=== PATIENT | male | born 1940 | race Caucasian/White ===

== ENCOUNTER 2016-09-15 09:39 | Day surgery (SDC) | payer MEDICARE, OTHER ==
[2016-09-15] MEDS ORDERED: Lactated Ringers 1,000 ML IV SCH (10:15)
[2016-09-15] MEDS ORDERED: Propofol 200 MG/20 ML SDV ONE (10:39)
[2016-09-15] MEDS ORDERED: fentaNYL 100 MCG/2 ML SDV ONE (10:40)
[2016-09-15 13:27] VITALS: BP 157/65
--- NOTE | 2016-09-16 08:23 | OR ---
DATE OF PROCEDURE: 09/15/2016 PREOPERATIVE DIAGNOSIS: History of adenomatous colon polyps. POSTOPERATIVE DIAGNOSES: Unremarkable colonoscopy, history of adenomatous colon polyps. PROCEDURE: Colonoscopy to the cecum. ANESTHESIA: IV anesthesia with monitored anesthesia care. INDICATION: This 75-year-old white male is referred for a colonoscopy because of a history of adenomatous colon polyps. He says his last colonoscopic exam was done three years ago. I counseled him for the procedure including risks and alternatives and he gave his informed consent to proceed. DESCRIPTION OF PROCEDURE: The patient was placed in the left lateral decubitus position. IV anesthesia was administered by the Anesthesia Service. Time-out was held. A rectal exam was performed, which was unremarkable. The flexible video Olympus colonoscope was introduced through his anus, up his rectum, and out his colon all way to the cecum. Once the cecum was reached, the scope was slowly withdrawn examining the mucosa throughout. No mucosal abnormalities were noted. The scope was retroflexed in the rectum with the distal rectum appearing unremarkable. The scope was straightened and removed. He tolerated the procedure well. We will plan a repeat colonoscopy in 5 years. Tyrel Martínez MD /[id number] SLICK
== END 2016-09-15 13:40 | disposition home or self-care (01) ==
LOC: JP.SDS 09:39
PROVIDERS: ATTEND Surgery
DX: Z12.11 Encounter for screening for malignant neoplasm of colon (principal); I10 Essential (primary) hypertension; Z88.0 Allergy status to penicillin
CPT/HCPCS: 45378; J2704; J3010; J7120

== ENCOUNTER 2018-12-02 21:33 | Emergency (ER) | payer MEDICARE, OTHER ==
--- NOTE | 2018-12-02 21:56 | EDM.PDOC ---
ED HPI GENERAL MEDICAL PROBLEM - General Chief Complaint: Laceration Stated Complaint: FELL CUT EAR Time Seen by Provider: 12/02/18 22:00 Source of Information: Reports: Patient History Limitations: Reports: No Limitations - History of Present Illness INITIAL COMMENTS - FREE TEXT/NARRATIVE: pt got up out of the bed and caught hiomself on the bed sheet and trimmed. He hit his rt ear against the end table and has a 1 inch laceration on the rt ear lobe. This did not go through the cartilage. Onset: Today, Sudden Duration: Hour(s): Location: Reports: Face, Other ( Pt has a laceration of the rt ear lobe. ) Associated Symptoms: Reports: No Other Symptoms Right Ear Pain Score (Numeric/FACES): 3 - Related Data Allergies Allergy/AdvReac Type Severity Reaction Status Date / Time Penicillins Allergy Severe Hives Verified 12/02/18 22:14 Home Meds: Home Meds Metoprolol Succinate [Toprol XL] 50 mg PO DAILY 04/19/13 [History] Sildenafil [Viagra] 100 mg PO DAILY PRN 05/16/13 [History] Past Medical History HEENT History: Reports: Impaired Vision Cardiovascular History: Reports: Hypertension Gastrointestinal History: Reports: Colon Polyp Musculoskeletal History: Reports: Fracture Dermatologic History: Reports: Cellulitis - Infectious Disease History Infectious Disease History: Reports: Chicken Pox, Measles, Mumps - Past Surgical History GI Surgical History: Reports: Appendectomy, Hernia, Abdominal Social & Family History - Caffeine Use Caffeine Use: Reports: Coffee ED ROS GENERAL - Review of Systems Review Of Systems: See Below Constitutional: Reports: No Symptoms HEENT: Reports: Other ( rt ear lobe is lacerated. ) Respiratory: Reports: No Symptoms Cardiovascular: Reports: No Symptoms Endocrine: Reports: No Symptoms GI/Abdominal: Reports: No Symptoms : Reports: No Symptoms Musculoskeletal: Reports: No Symptoms Skin: Reports: No Symptoms Neurological: Reports: No Symptoms Psychiatric: Reports: No Symptoms ED EXAM, SKIN/RASH Exam: See Below Text/Narrative:: pt went to get up and tripped on the bedsheet. He hit the bedside table. He had a 1.5 inch laceration on the front of the ear lobe and it wrapped to the back of the ear. This did not involve the cartilage of the ear. The wound was closed with 6-0 prolene. The wound was treated with bacatraCIN AND A DRESSING WAS APPLIED. Exam Limited By: No Limitations General Appearance: Alert, Anxious, Mild Distress Ears: Other (PT HAD A 1.5 INCH LACERATION WHICH WRAPPED TO THE BACK OF THE EAR . tHIS DOES NOT INVOLVE THE CARTILAGE. ) Nose: Normal Inspection Throat/Mouth: Normal Inspection Head: Atraumatic Neck: Normal Inspection Respiratory/Chest: No Respiratory Distress Course - Vital Signs Last Recorded V/S: Last Vital Signs Temp 36.1 C 12/02/18 22:01 Pulse 81 12/02/18 22:01 Resp 16 12/02/18 22:01 BP 174/84 H 12/02/18 22:01 Pulse Ox 96 12/02/18 22:01 - Orders/Labs/Meds Orders: Active Orders 24 hr Category Date Time Status Vaccines to be Administered [RC] PER UNIT ROUTINE Care 12/02/18 22:31 Active Meds: Medications Discontinued Medications Generic Name Dose Route Start Last Admin Trade Name Freq PRN Reason Stop Dose Admin Bacitracin 1 dose 12/02/18 22:00 12/02/18 22:09 Bacitracin Oint 1 Gm TOP 12/02/18 22:01 1 dose ONETIME ONE Administration Diphtheria/Tetanus/Acell Pertussis 0.5 ml 12/02/18 22:30 12/02/18 22:37 Adacel IM 12/02/18 22:31 0.5 ml .ONCE ONE Administration Lidocaine HCl 5 ml 12/02/18 21:59 12/02/18 22:09 Xylocaine-Mpf 1% INJECT 12/02/18 22:00 5 ml ONETIME ONE Administration - Re-Assessments/Exams Free Text/Narrative Re-Assessment/Exam: 12/02/18 22:34 The area was cleansed well and infiltrated with lidocaine. The wound was 1.5 inches because the laceration wrapped to the back of the ear. The wound was closed with 6-0 prolene . It was cleaned well bactracin was applied. The wound can be left open to air. Pt was given a tetanus booster. He has no record of a recent tdap in the state registry. . 12/02/18 22:38 Departure - Departure Time of Disposition: 22:31 Disposition: Home, Self-Care 01 Condition: Fair Clinical Impression: Laceration of right ear - Discharge Information Instructions: Laceration Care, Adult, VIS, Tetanus, Diphtheria, and Pertussis ( Tdap) - [facility] (08/06/2014) Referrals: Hugh Torres MD [Primary Care Provider] - Forms: ED Department Discharge Care Plan Goals: keep dry, do not use further ouintments, rtc if redness or drainage, suture removal with Dr Torres in 1 week. - My Orders Last 24 Hours: My Active Orders 12/02/18 22:31 Vaccines to be Administered [RC] PER UNIT ROUTINE - Assessment/Plan Last 24 Hours: My Active Orders 12/02/18 22:31 Vaccines to be Administered [RC] PER UNIT ROUTINE
[2018-12-02] MEDS ORDERED: Bacitracin Oint 1 GM U/D Packet TOP ONE (22:00)
[2018-12-02 22:02] VITALS: BP 174/84
[2018-12-02] MEDS ORDERED: Diphtheria,Pertussis(Acell),Tetanus Vaccine 0.5 ML SDV IM ONE (22:30)
== END 2018-12-02 22:47 | disposition home or self-care (01) ==
LOC: JP.ED 21:33
DX: S01.311A Laceration without foreign body of right ear, initial encounter (principal); Z23 Encounter for immunization; I10 Essential (primary) hypertension; Z88.0 Allergy status to penicillin; Z79.899 Other long term (current) drug therapy; W22.03XA Walked into furniture, initial encounter
CPT/HCPCS: 12013; 90471; 90715; 99282; J2001

== ENCOUNTER 2020-04-11 10:11 | Emergency (ER) | payer OTHER, MEDICARE ==
[2020-04-11 10:38] VITALS: BP 185/87; PULSE 65
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
== END 2020-04-11 11:39 | disposition home or self-care (01) ==
LOC: JP.ED 10:11
DX: S29.012A Strain of muscle and tendon of back wall of thorax, initial encounter (principal); I10 Essential (primary) hypertension; Z88.0 Allergy status to penicillin; Z79.899 Other long term (current) drug therapy; V47.9XXA Unspecified car occupant injured in collision with fixed or stationary object in traffic accident, initial encounter
CPT/HCPCS: 99283

== ENCOUNTER 2020-04-13 06:15 | Emergency (ER) | payer OTHER, MEDICARE ==
[2020-04-13 06:32] VITALS: BP 173/87; PULSE 60
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
== END 2020-04-13 08:51 | disposition home or self-care (01) ==
LOC: JP.ED 06:15
DX: S22.42XA Multiple fractures of ribs, left side, initial encounter for closed fracture (principal); I10 Essential (primary) hypertension; Z88.0 Allergy status to penicillin; Z79.899 Other long term (current) drug therapy; V89.2XXA Person injured in unspecified motor-vehicle accident, traffic, initial encounter
CPT/HCPCS: 71046; 71046-26; 71250; 99284-25

== ENCOUNTER 2023-04-02 12:20 | Emergency (ER) | payer MEDICARE, OTHER ==
[2023-04-02 12:33] VITALS: BP 191/89; PULSE 66
== END 2023-04-02 14:20 | disposition home or self-care (01) ==
LOC: JP.ED 12:20
DX: S00.83XA Contusion of other part of head, initial encounter (principal); I10 Essential (primary) hypertension; Z86.16 Personal history of COVID-19; Z88.0 Allergy status to penicillin; Z79.899 Other long term (current) drug therapy; W01.198A Fall on same level from slipping, tripping and stumbling with subsequent striking against other object, initial encounter
CPT/HCPCS: 99283

== ENCOUNTER 2023-12-11 07:21 | Inpatient (IN) | payer MEDICARE ==
[2023-12-11 08:33] LABS: BASOPHILS PERCENT AUTO 0.1 % (0.1-1.3); HEMATOCRIT 32.4 % (38.4-49.7); HEMOGLOBIN 11.6 g/dL (12.9-16.9); IMMATURE GRAN ABSOLUTE AUTO 0.03 K/uL (0.00-0.23); IMMATURE GRAN PERCENT AUTO 0.4 % (0.0-0.7); LYMPHOCYTES ABSOLUTE AUTO 0.47 K/uL (0.8-3.3); LYMPHOCYTES PERCENT AUTO 5.9 % (11.4-47.7); MEAN CORPUSCULAR HEMOGLOBIN 33.4 pg (31.6-35.5); MEAN CORPUSCULAR HGB CONC 35.8 g/dL (31.6-35.5); MEAN CORPUSCULAR VOLUME 93.4 fL (81.4-99.0); MONOCYTES ABSOLUTE AUTO 0.69 K/uL (0.20-0.90); MONOCYTES PERCENT AUTO 8.7 % (3.3-12.6); NEUTROPHILS PERCENT AUTO 84.9 % (40.0-78.1); PLATELET COUNT,PLT 126 K/uL (130-375); RED BLOOD CELL COUNT 3.47 M/uL (4.14-5.76); WHITE BLOOD CELL COUNT,WBC 7.9 K/uL (3.2-11.0)
[2023-12-11 08:35] LABS: BASOPHILS ABSOLUTE AUTO 0.01 K/uL (0.00-0.10)
[2023-12-11 08:52] LABS: INR 1.1; PROTHROMBIN TIME 11.4 sec (9.2-10.6); PTT,PARTIAL THROMBOPLSTIN TIME 32.5 sec (21.8-27.3)
[2023-12-11 08:59] LABS: A/G RATIO 0.7 (1.2-2.2); ALANINE AMINOTRANSFERASE,ALT 46 U/L (12-78); ALBUMIN 2.7 g/dL (3.4-5.0); ALKALINE PHOSPHATASE 82 U/L (46-116); ASPARTATE AMNIOTRANSFERASE,AST 40 U/L (15-37); BILIRUBIN TOTAL 0.9 mg/dL (0.2-1.0); BLOOD UREA NITROGEN,BUN 27 mg/dL (7-18); CALCIUM 8.5 mg/dL (8.5-10.1); CARBON DIOXIDE,CO2 25 mmol/L (21-32); CHLORIDE,CL 93 mmol/L (100-108); CREATINE KINASE,CK 100 U/L (39-308); CREATININE 1.7 mg/dL (0.8-1.3); EST CRCL DRUG DOSING (CG) 35.07 mL/min; ESTIMATED GFR 40 mL/min (>60); GLUCOSE RANDOM 145 mg/dL (74-106); MAGNESIUM 2.1 mg/dL (1.8-2.4); PHOSPHORUS 2.8 mg/dL (2.5-4.9); POTASSIUM,K 4.8 mmol/L (3.6-5.2); PROTEIN TOTAL,TP 6.6 g/dL (6.4-8.2); SODIUM,NA 126 mmol/L (140-148); TROPONIN I HIGH SENSITIVITY 15.6 pg/mL (<=60.3)
[2023-12-11 09:00] LABS: ANION GAP 12.8 mmol/L (5.0-14.0)
[2023-12-11] MEDS ORDERED: Sodium Chloride 0.9% 500 ML IV SCH (12:30)
[2023-12-11] MEDS ORDERED: Magnesium Hydroxide 400 MG/5 ML Susp 30 ML Cup PO PRN (12:55)
[2023-12-11] MEDS ORDERED: Sodium Chloride 0.9% 10 ML Syringe FLUSH PRN (12:55)
[2023-12-11] MEDS ORDERED: Sennosides/Docusate Sodium 50-8.6 MG Tab PO PRN (12:55)
[2023-12-11] MEDS ORDERED: Ondansetron 4 MG/2 ML SDV IV PRN (12:55)
[2023-12-11] MEDS ORDERED: Ondansetron 4 MG Tab.DIS PO PRN (12:55)
[2023-12-11] MEDS: Sodium Chloride 0.9% 1,000 ML IV SCH (13:31)
[2023-12-11 14:32] LABS: APPEARANCE,URINE SLIGHTLY CLOUDY (CLEAR); BILIRUBIN,URINE NEGATIVE (NEGATIVE); COLOR,URINE YELLOW (YELLOW); GLUCOSE,URINE NEGATIVE (NEGATIVE); KETONES,URINE NEGATIVE (NEGATIVE); LEUKOCYTE ESTERASE,URINE NEGATIVE (NEGATIVE); NITRITE,URINE NEGATIVE (NEGATIVE); OCCULT BLOOD,URINE SMALL (NEGATIVE); PROTEIN,URINE >=300 mg/dL (NEGATIVE)
[2023-12-11 14:39] LABS: AMORPHOUS SEDIMENT,URINE FEW; BACTERIA,URINE FEW; EPITHELIAL CELLS,URINE NOT SEEN; MUCUS,URINE NOT SEEN; RBC,URINE 0-5 (0-5); WBC,URINE 0-5 (0-5)
[2023-12-11] MEDS: Acetaminophen 325 MG Tab PO PRN (20:05)
[2023-12-11] MEDS: Enoxaparin 40 MG/0.4 ML Syringe SUBCUT SCH (22:35)
[2023-12-12 05:32] LABS: CALCIUM 8.2 mg/dL (8.5-10.1); CREATININE 1.4 mg/dL (0.8-1.3); EST CRCL DRUG DOSING (CG) 42.58 mL/min; POTASSIUM,K 4.4 mmol/L (3.6-5.2)
[2023-12-12 05:39] LABS: ANION GAP 12.4 mmol/L (5.0-14.0)
[2023-12-12] MEDS: Metoprolol Succinate 50 MG Tab.ER PO SCH (09:21)
[2023-12-13 05:32] LABS: CALCIUM 8.4 mg/dL (8.5-10.1); CREATININE 1.4 mg/dL (0.8-1.3); EST CRCL DRUG DOSING (CG) 42.58 mL/min; POTASSIUM,K 4.3 mmol/L (3.6-5.2); TSH ULTRASENSITIVE 1.399 uIU/mL (0.358-3.740)
[2023-12-13 05:44] LABS: ANION GAP 14.3 mmol/L (5.0-14.0)
[2023-12-13 06:11] VITALS: BP 104/61; PULSE 62
[2023-12-13] MEDS: Metoprolol Succinate 50 MG Tab.ER PO SCH (08:25)
[2023-12-13] MEDS: Metoprolol Succinate 25 MG Tab.ER PO SCH (10:31)
== END 2023-12-13 12:09 | disposition home or self-care (01) | DRG 683 ==
LOC: JP.ED 07:21 → UNDOADMOB 12:52 → JP.ICU 12:52 → OBSVTOIN 12-12 13:37
PROVIDERS: ADMIT Internal Medicine; ATTEND Hospitalist
DX: N17.9 Acute kidney failure, unspecified (principal); E87.1 Hypo-osmolality and hyponatremia; I48.92 Unspecified atrial flutter; E86.0 Dehydration; E66.9 Obesity, unspecified; I35.0 Nonrheumatic aortic (valve) stenosis; I11.0 Hypertensive heart disease with heart failure; I50.9 Heart failure, unspecified; I95.9 Hypotension, unspecified; F03.90 Unspecified dementia, unspecified severity, without behavioral disturbance, psychotic disturbance, mood disturbance, and anxiety; Z88.0 Allergy status to penicillin; Z88.2 Allergy status to sulfonamides; Z90.89 Acquired absence of other organs; Z68.30 Body mass index [BMI] 30.0-30.9, adult; Z86.010 Personal history of colon polyps; Z87.891 Personal history of nicotine dependence; Z79.899 Other long term (current) drug therapy
CPT/HCPCS: 36415; 70450; 71046; 71046-26; 80048; 80053; 81001; 82550; 82947; 83605; 83735; 83880; 84100; 84443; 84484; 85025; 85610; 85730; 93005; 93010; 96360; 96361; 96372; 97116-GP; 97161-GP; 97530-GP; 99222; 99232; 99238; 99285; A9270-GY; G0378; J1650; J7030

== ENCOUNTER 2024-01-30 06:16 | Day surgery (SDC) | payer MEDICARE ==
[2024-01-30] MEDS ORDERED: fentaNYL 50 MCG/ML SDV ONE (06:48)
[2024-01-30] MEDS ORDERED: Propofol 200 MG/20 ML SDV ONE ×2 (06:48→07:30)
[2024-01-30] MEDS: Lactated Ringers 1,000 ML IV SCH (06:55)
[2024-01-30 09:19] VITALS: BP 133/74; PULSE 61
== END 2024-01-30 09:45 | disposition home or self-care (01) ==
LOC: JP.SDS 06:16
PROVIDERS: ATTEND Family Medicine
DX: D12.3 Benign neoplasm of transverse colon (principal); K63.5 Polyp of colon; K29.50 Unspecified chronic gastritis without bleeding; K29.80 Duodenitis without bleeding; D50.9 Iron deficiency anemia, unspecified; I10 Essential (primary) hypertension; E66.9 Obesity, unspecified; Z88.0 Allergy status to penicillin; Z88.2 Allergy status to sulfonamides
CPT/HCPCS: 00813; 43239; 45380; 88305; 88342; J2704; J3010; J7120

== ENCOUNTER 2024-04-05 06:19 | Day surgery (SDC) | payer MEDICARE ==
[2024-04-05] MEDS: Sodium Chloride 0.9% 10 ML Syringe FLUSH PRN (07:08)
[2024-04-05 08:09] VITALS: BP 167/80; PULSE 61
== END 2024-04-05 08:27 | disposition home or self-care (01) ==
LOC: JP.SDS 06:19
PROVIDERS: ATTEND Ophthalmology
DX: H25.11 Age-related nuclear cataract, right eye (principal); I10 Essential (primary) hypertension
CPT/HCPCS: 66984; J3490; V2632

== ENCOUNTER 2024-12-18 22:16 | Emergency (ER) | payer MEDICARE | END 2024-12-18 23:20 | disposition left against medical advice (07) | LOC: JP.ED 22:16 | DX: Z53.21 Procedure and treatment not carried out due to patient leaving prior to being seen by health care provider (principal) ==